=== PATIENT | female | born 1965 | race Caucasian/White ===

== ENCOUNTER 2016-11-21 12:01 | Outpatient (CLI) | payer BC, OTHER | END 2016-11-21 12:02 | disposition home or self-care (01) | LOC: MADLABBHPM 12:01 | PROVIDERS: ATTEND Family Medicine | DX: N30.90 Cystitis, unspecified without hematuria (principal) | CPT/HCPCS: 87077; 87086; 87186 ==

== ENCOUNTER 2017-04-19 11:53 | Emergency (ER) | payer BC ==
[~2017-04-19 11:53] MED LIST: Iopamidol 370 76% 125 ML VIAL FS ONE; Sodium Chloride 0.9% 100 ML BAG ONE
--- NOTE | 2017-04-19 12:32 | RAD ---
PA AND LATERAL CHEST: History: Dyspnea. FINDINGS: Comparison made with exam of 08-12-15. The heart size is normal. The lungs are expanded without focal areas of consolidation, pneumothorax, weston pleural edema, or pleural effusions. There are degenerative changes in the spine. IMPRESSION: No radiographic evidence of acute cardiopulmonary process. POS: [facility]
[2017-04-19 12:56] LABS: #Basophils 0.1 thou/uL (0.0-0.2); #Eosinphils 0.1 thou/uL (0.0-0.7); #Lymphocytes 2.1 thou/uL (1.20-3.40); #Monocytes 0.7 thou/uL (0.11-0.59); #Neutrophils 4.6 thou/uL (1.40-6.50); %Basophils 1.3 % (0.0-1.0); %Eosinophils 1.6 % (0.0-10.0); %Lymphocytes 27.3 % (21.0-51.0); %Monocytes 8.7 % (0.0-10.0); %Neutrophils 61.2 % (42.0-75.0); Hemoglobin 14.2 g/dL (12.0-16.0); Mean Corpuscular HGB CONC 33.3 g/dL (32.0-36.0); Mean Corpuscular Hemoglobin 29.5 pg (27.0-31.0); Mean Corpuscular Volume 88.4 fl (81.0-99.0); Mean Platelet Volume 6.2 fL (7.4-10.4); Platelet Count 331 thou/uL (130-400); RBC Distribution Width 14.6 % (11.5-14.5); Red Blood Cell (RBC) Count 4.82 mill/uL (4.20-5.40); White Blood Cell (WBC) Count 7.5 thou/uL (4.8-10.8)
[2017-04-19 13:07] LABS: CKMB 1.4 ng/mL (0-6.6)
[2017-04-19 13:41] LABS: ALT (SGPT) 42 U/L (8-55); AST (SGOT) 25 U/L (5-34); Albumin 4.1 g/dL (3.5-5.0); Alkaline Phosphatase 87 U/L (40-150); Anion Gap 15 mmol/L (10-20); BUN (Urea Nitrogen) 24 mg/dL (9.8-20.1); Bilirubin, Total 0.4 mg/dL (0.2-1.2); Calc. Creatinine Clearance 0 mL/min (70-130); Calcium 9.2 mg/dL (7.8-10.44); Carbon Dioxide 25 mmol/L (22-29); Chloride 105 mmol/L (98-107); Estimated GFR-MDRD 65; Globulin 3.3 g/dL (2.4-3.5); Glucose 101 mg/dL (70-105); Potassium 4.2 mmol/L (3.5-5.1); Protein, Total 7.4 g/dL (6.0-8.3); Sodium 141 mmol/L (136-145)
[2017-04-19 14:51] LABS: Troponin I Less than 0.010 ng/mL (< 0.028)
--- NOTE | 2017-04-19 15:39 | CT ---
CT PULMONARY ANGIOGRAM WITH IV CONTRAST AND 3D POST PROCSSING: Date: 04/19/17 HISTORY: Dyspnea. FINDINGS: There is better opacification of the thoracic aorta compared to the pulmonary arterial vascular syst em. No filling defects are seen in the contrast opacified pulmonary arterial system to suggest pulmo nary embolism. The thoracic aorta is of normal caliber and demonstrates no evidence of aneurysmal di latation. No intimal flap is seen in the contrast opacified thoracic aorta to suggest dissection. No pleural or pericardial effusions are identified. No pneumothoraces, focal areas of consolidation, o r lung masses are seen. There is a 4.0 mm nodule in the left upper lobe. There are degenerative wasserman ges in the spine. Upper abdominal tomograms demonstrate fatty infiltration of the liver. IMPRESSION: 1. No CT evidence of pulmonary embolism or thoracic aortic aneurysm/dissection. 2. Fatty liver. 3. 4.0 mm left upper lobe lung nodule. A follow-up CT scan of the chest is recommended in 6 months. POS: [facility]
[2017-04-19] MEDS ORDERED: Aspirin 325 MG TAB ONE (15:42)
[2017-04-19] MEDS ORDERED: Enoxaparin Sodium 30 MG/0.3 ML SYRINGE ONE (17:48)
[2017-04-19] MEDS ORDERED: Enoxaparin Sodium 60 MG/0.6 ML SYRINGE ONE (17:48)
== END 2017-04-19 17:44 | disposition short-term general hospital (02) ==
LOC: MADERS 11:53
DX: R06.00 Dyspnea, unspecified (principal); F41.9 Anxiety disorder, unspecified; Z87.891 Personal history of nicotine dependence; Z87.442 Personal history of urinary calculi; Z79.82 Long term (current) use of aspirin; Z79.899 Other long term (current) drug therapy
CPT/HCPCS: 71020; 71275; 80053; 82553; 83880; 84484; 85025; 85379; 93005; 96372; J1650; J7050

== ENCOUNTER 2018-06-20 09:07 | Outpatient (CLI) | payer BC, OTHER ==
--- NOTE | 2018-06-20 10:42 | ULT ---
THYROID SONOGRAM: HISTORY: Neck mass. Enlarged thyroid gland. FINDINGS: The right thyroid lobe measures up to 4.5 cm. Heterogeneous, hypoechoic, solid nodules measure up to 0.8 cm. No calcifications are apparent. The left thyroid lobe is 4.7 cm and also contains heterogeneous hypoechoic nodules, measuring up to 1 .1 cm. The isthmus is 0.5 cm, with small nodules measuring 0.7 and 0.8 cm in diameter. IMPRESSION: Multinodular goiter. No dominant aggressive lesion is apparent. POS: [facility]
[2018-06-20 10:49] LABS: #Basophils 0.1 thou/uL (0.0-0.2); #Eosinphils 0.2 thou/uL (0.0-0.7); #Lymphocytes 2.3 thou/uL (1.20-3.40); #Monocytes 0.6 thou/uL (0.11-0.59); #Neutrophils 3.6 thou/uL (1.40-6.50); %Basophils 1.1 % (0.0-1.0); %Lymphocytes 33.7 % (21.0-51.0); %Monocytes 9.1 % (0.0-10.0); %Neutrophils 53.1 % (42.0-75.0); Hemoglobin 13.6 g/dL (12.0-16.0); Mean Corpuscular HGB CONC 32.2 g/dL (32.0-36.0); Mean Corpuscular Hemoglobin 29.3 pg (27.0-31.0); Mean Platelet Volume 6.3 fL (7.4-10.4); Platelet Count 349 thou/uL (130-400); RBC Distribution Width 14.1 % (11.5-14.5); Red Blood Cell (RBC) Count 4.65 mill/uL (4.20-5.40); White Blood Cell (WBC) Count 6.8 thou/uL (4.8-10.8)
[2018-06-20 11:45] LABS: Clarity Hazy (Clear); Specific Gravity, Urine 1.025 (1.005-1.030)
[2018-06-20 11:46] LABS: Bilirubin Negative (Negative); Blood, Urine Negative (Negative); Glucose, Urine (Dipstick) Negative (Negative); Leukocyte Negative (Negative); Nitrite Negative (Negative); Protein, Urine (Dipstick) Negative (Neg-Trace); Urobilinogen 0.2 mg/dL (0.2-1.0); pH, Urine 5.5 (5.0-9.0)
[2018-06-20 11:48] LABS: Bacteria/HPF Rare-Few HPF (None Seen); RBC/HPF 0-3 HPF (0-3); WBC/HPF 0-3 HPF (0-3)
[2018-06-20 17:25] LABS: Hemoglobin A1c 5.1 % (4.0-6.0)
[2018-06-20 17:34] LABS: Free T4 (Free Thyroxine) 0.89 ng/dL (0.70-1.48)
[2018-06-20 19:49] LABS: Thyroid Stimulating Hormone 1.321 uIU/mL (0.35-4.94)
[2018-06-21 21:15] LABS: Anion Gap 16 mmol/L (10-20); Cardiac Risk 3.9 (Less than 4.5); LDL Cholesterol, Calculated 124 mg/dL
[2018-06-22 04:45] LABS: Albumin 4.2 g/dL (3.5-5.0)
[2018-06-22 04:46] LABS: Chloride 105 mmol/L (98-107); Potassium 4.5 mmol/L (3.5-5.1); Sodium 144 mmol/L (136-145)
[2018-06-22 04:47] LABS: Calcium 9.4 mg/dL (7.8-10.44); Glucose 112 mg/dL (70-105); Triglycerides 115 mg/dL (Less than 150)
[2018-06-22 04:48] LABS: Protein, Total 7.1 g/dL (6.0-8.3)
[2018-06-22 04:49] LABS: Bilirubin, Total 0.3 mg/dL (0.2-1.2); Carbon Dioxide 25 mmol/L (22-29)
[2018-06-22 04:50] LABS: Alkaline Phosphatase 91 U/L (40-150)
[2018-06-22 04:51] LABS: Calc. Creatinine Clearance 0 mL/min (70-130); Estimated GFR-MDRD 65
[2018-06-22 04:52] LABS: AST (SGOT) 18 U/L (5-34); BUN (Urea Nitrogen) 17 mg/dL (9.8-20.1); Cholesterol 198 mg/dl (< 200 Desired)
[2018-06-22 04:53] LABS: ALT (SGPT) 25 U/L (8-55); HDL Cholesterol 50 mg/dL (>60 Neg Risk)
== END 2018-06-20 09:08 | disposition home or self-care (01) ==
LOC: MADULT 09:07
PROVIDERS: ATTEND Family Medicine
DX: E04.9 Nontoxic goiter, unspecified (principal); R53.83 Other fatigue; R35.8 Other polyuria; E04.2 Nontoxic multinodular goiter; Z83.3 Family history of diabetes mellitus
CPT/HCPCS: 36415; 76536; 80053; 80061; 81001; 83036; 84439; 84443; 85025

== ENCOUNTER 2018-11-28 09:15 | Outpatient (CLI) | payer OTHER ==
--- NOTE | 2018-11-28 11:21 | RAD ---
6 VIEWS CERVICAL SPINE: Date: 11/28/18 COMPARISON: None. HISTORY: Radicular pain, arthralgia. FINDINGS: Frontal, lateral, open-mouth odontoid view, swimmer's lateral view, and bilateral oblique views are p rovided. The lateral examination demonstrates disc space narrowing with anterior osteophyte formation at C3-4 and C4-5. At C5-6 and C6-7, there is disc space narrowing with degenerative end plate change , as well as anterior and posterior osteophyte formation. Imaged cardiac silhouette appears enlarged, only partially visualized on this exam. This may be technical in nature. There is bilateral facet an d uncovertebral osteophyte formation within the mid cervical spine. Open-mouth odontoid view demonstrates normal appearing dense and C1-2 articulation. Oblique imaging d emonstrate mild osteophyte encroachment on the right neural foramen at C6-7. Oblique imaging demonstr ates neural foraminal stenosis on the left on the basis of osteophyte encroachment at C4-5 and C5-6. The cervicothoracic junction appears intact on the provided swimmer's lateral view. 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 POS: [facility]
== END 2018-11-28 09:16 | disposition home or self-care (01) ==
LOC: MADRAD 09:15
PROVIDERS: ATTEND Family Medicine
DX: M47.22 Other spondylosis with radiculopathy, cervical region (principal); M54.2 Cervicalgia
CPT/HCPCS: 72050

== ENCOUNTER 2019-06-12 10:14 | Outpatient (CLI) | payer OTHER ==
[2019-06-12 10:49] LABS: ALT (SGPT) 30 U/L (8-55); AST (SGOT) 17 U/L (5-34); Alkaline Phosphatase 78 U/L (40-150); Anion Gap 13 mmol/L (10-20); BUN (Urea Nitrogen) 16 mg/dL (9.8-20.1); Bilirubin, Total 0.4 mg/dL (0.2-1.2); Calc. Creatinine Clearance 0 mL/min (70-130); Calcium 9.6 mg/dL (7.8-10.44); Carbon Dioxide 31 mmol/L (22-29); Chloride 102 mmol/L (98-107); Estimated GFR-MDRD 72; Globulin 3.3 g/dL (2.4-3.5); Glucose 115 mg/dL (70-105); Potassium 4.2 mmol/L (3.5-5.1); Protein, Total 7.3 g/dL (6.0-8.3); Sodium 142 mmol/L (136-145)
== END 2019-06-12 10:15 | disposition home or self-care (01) ==
LOC: MADLABBHPM 10:14
PROVIDERS: ATTEND Family Medicine
DX: R60.0 Localized edema (principal)
CPT/HCPCS: 36415; 80053; 83880; 84443

== ENCOUNTER 2019-09-16 08:37 | Outpatient (CLI) | payer OTHER ==
--- NOTE | 2019-09-16 09:27 | ULT ---
Thyroid sonogram HISTORY: Multinodular goiter. COMPARISON: 06/20/2018. FINDINGS: On today's exam, the right thyroid lobe measures up to 4.2 cm. Multiple heterogeneous hypoe choic nodules measuring up to 1.0 cm greatest diameter. Isthmus is 0.3 cm. Heterogeneous hypoechoic lesion measures up to 1.0 cm. Left thyroid lobe measures up to 4.5 cm length. Largest masses near the inferior pole, measuring up t o 1.1 cm greatest diameter. IMPRESSION: Stable sonographic appearance of the multinodular goiter.
== END 2019-09-16 08:38 | disposition home or self-care (01) ==
LOC: MADULT 08:37
PROVIDERS: ATTEND Specialist
DX: E04.2 Nontoxic multinodular goiter (principal)
CPT/HCPCS: 76536

== ENCOUNTER 2020-08-03 07:59 | Outpatient (CLI) | payer OTHER ==
--- NOTE | 2020-08-03 09:39 | ULT ---
ULTRASOUND THYROID STANDARD: Date: 08/03/2020 HISTORY: Thyroid goiter. COMPARISON: Ultrasound dated 09/16/2019. FINDINGS: Real-time Durand scale and color evaluation of the thyroid was performed. Isthmus measures 7.0 mm AP dimension. Right lobe measures 3.9 x 1.3 x 1.6 cm. Left lobe measures 4.0 x 1.2 x 1.3 cm. In the left lobe is a solid, isoechoic, wider than tall, nodule measuring up to 1.4 cm, with well-def ined margins and absent echogenic foci. This nodule has not significantly grown from the comparison e xam and is TI-RADS 3 - Mildly suspicious. No aspiration or follow-up is required. At the isthmus is an unchanged solid, hypoechoic, wider than tall, nodule measuring up to 1.1 cm. Thi s nodule has also not grown and is TI-RADS 4 - Moderately suspicious. Lastly, in the right lobe near the isthmus, is a solid, isoechoic, wider than tall, 9.0 mm nodule, al so without any growth. IMPRESSION: No growth of the thyroid nodules. POS: [facility]
--- NOTE | 2020-08-03 11:51 | RAD ---
RIGHT FOOT 3 VIEWS: Date: 08/03/2020 HISTORY: Foot pain. Achilles tendinitis. FINDINGS: There are some moderate arthritic changes at the first metatarsophalangeal joint level. There are kirsti caneal spurs involving the Achilles tendon insertion and plantar fascia. There is also some ossificat ion within the distal Achilles tendon. There are some mild arthritic changes of the midfoot region. IMPRESSION: Arthritic changes of the foot as above. POS: [facility]
== END 2020-08-03 08:00 | disposition home or self-care (01) ==
LOC: MADULT 07:59
PROVIDERS: ATTEND Family Medicine
DX: E04.2 Nontoxic multinodular goiter (principal); M76.61 Achilles tendinitis, right leg; M19.071 Primary osteoarthritis, right ankle and foot
CPT/HCPCS: 76536

== ENCOUNTER 2020-10-14 11:03 | Emergency (ER) | payer OTHER ==
[2020-10-14] MEDS ORDERED: Dexamethasone 10 MG/ML VIAL ONE (11:29)
[2020-10-14] MEDS ORDERED: Doxycycline Hyclate 100 MG VIAL ONE (11:30)
[2020-10-14] MEDS ORDERED: Sodium Chloride 0.9% 200 ML ONE (11:30)
[2020-10-14] MEDS ORDERED: cefTRIAXone\\ROCEPHIN 1 GM VIAL ONE (11:30)
[2020-10-14 12:03] LABS: #Basophils 0.1 thou/uL (0.0-0.2); #Lymphocytes 1.1 thou/uL (1.20-3.40); #Monocytes 1.1 thou/uL (0.11-0.59); #Neutrophils 10.1 thou/uL (1.40-6.50); %Basophils 0.6 % (0.0-1.0); %Eosinophils 0.4 % (0.0-10.0); %Lymphocytes 8.5 % (21.0-51.0); %Monocytes 8.6 % (0.0-10.0); Hemoglobin 12.4 g/dL (12.0-16.0); Mean Corpuscular HGB CONC 33.4 g/dL (32.0-36.0); Mean Corpuscular Hemoglobin 29.1 pg (27.0-31.0); Mean Corpuscular Volume 87.3 fL (78.0-98.0); Mean Platelet Volume 5.5 fL (7.4-10.4); Platelet Count 502 thou/uL (130-400); RBC Distribution Width 14.3 % (11.5-14.5); Red Blood Cell (RBC) Count 4.27 mill/uL (4.20-5.40); White Blood Cell (WBC) Count 12.3 thou/uL (4.8-10.8)
--- NOTE | 2020-10-14 12:08 | RAD ---
Chest one view HISTORY: Dyspnea. Follow-up. COMPARISON: 10/09/2020. FINDINGS: Cardiac silhouette magnified and upper limits of normal in size. Pulmonary vasculature now engorged. Widespread reticulonodular interstitial prominence. Additional ill-defined patchy groundglass opacities project over each lung. Calcified granulomata are consistent with healed granulomatous disease. No evidence of pneumothorax. Postoperative changes right shoulder. IMPRESSION : Pulmonary vascular congestion. Suspected superimposed bilateral groundglass infiltrates. Correlate for COVID pneumonitis..
[2020-10-14 12:14] LABS: ALT (SGPT) 22 U/L (8-55); AST (SGOT) 29 U/L (5-34); Albumin 3.6 g/dL (3.5-5.0); Alkaline Phosphatase 64 U/L (40-110); Anion Gap 19 mmol/L (10-20); BUN (Urea Nitrogen) 19 mg/dL (9.8-20.1); Bilirubin, Total 0.6 mg/dL (0.2-1.2); Calc. Creatinine Clearance 0 mL/min (70-130); Carbon Dioxide 31 mmol/L (22-29); Chloride 88 mmol/L (98-107); Globulin 3.9 g/dL (2.4-3.5); Glucose 99 mg/dL (70-105); Potassium 3.1 mmol/L (3.5-5.1); Protein, Total 7.5 g/dL (6.0-8.3); Sodium 135 mmol/L (136-145)
[2020-10-14 12:17] LABS: CRP (Inflammatory) 26.18 mg/dL (= or < 0.5)
[2020-10-14] MEDS ORDERED: Enoxaparin Sodium 40 MG/0.4 ML SYRINGE ONE (16:34)
== END 2020-10-14 18:10 | disposition short-term general hospital (02) ==
LOC: MADERS 11:03
DX: U07.1 COVID-19 (principal); J96.91 Respiratory failure, unspecified with hypoxia; F41.9 Anxiety disorder, unspecified; Z87.891 Personal history of nicotine dependence; Z79.899 Other long term (current) drug therapy
CPT/HCPCS: 71045; 80053; 82550; 83605; 84484; 85025; 86140; 93005; 94760; 96365; 96366; 96367; 96372; 96375; J0696; J1100; J1650; J3490

== ENCOUNTER 2021-01-26 11:42 | Outpatient (CLI) | payer OTHER | END 2021-01-26 11:43 | disposition home or self-care (01) | LOC: MADRAD 11:42 | PROVIDERS: ATTEND Family Medicine | DX: J12.82 Pneumonia due to coronavirus disease 2019 (principal); Z86.16 Personal history of COVID-19 | CPT/HCPCS: 71046 ==

== ENCOUNTER 2021-09-10 11:12 | Outpatient (CLI) | payer OTHER | END 2021-09-10 11:13 | disposition home or self-care (01) | LOC: MADRAD 11:12 | PROVIDERS: ATTEND Family Medicine | DX: M89.8X1 Other specified disorders of bone, shoulder (principal) | CPT/HCPCS: 71046 ==